=== PATIENT | female | born 1965 | race Caucasian/White ===

== ENCOUNTER → 2018-03-10 | Outpatient (CLI) | payer OTHER | END | disposition home or self-care (01) | LOC: EKG 10:04 | DX: R94.31 Abnormal electrocardiogram [ECG] [EKG] (principal) ==

== ENCOUNTER 2018-03-30 06:12 | Day surgery (SDC) | payer OTHER ==
[~2018-03-30 06:12] MED LIST: BUPROPION XL300 MG PO; CLONAZEPAM0.5 MG PO; RESTORIL30 M1 PO; SYNTHROID100 MCG PO
== END 2018-03-30 15:10 | disposition home or self-care (01) ==
LOC: CIR.AMB 06:12
DX: N65.1 Disproportion of reconstructed breast (principal)